=== PATIENT | female | born 1935 | race Caucasian/White ===

== ENCOUNTER → 2021-01-04 | Outpatient (CLI) | payer OTHER ==
[2021-01-05 12:14] LABS: RHEUMATOID ARTHRITIS FACTOR 11.2 IU/mL (0.0-13.9)
== END ==
LOC: LAB 14:11
PROVIDERS: Nurse Practitioner Family
DX: M25.551 Pain in right hip (principal); M25.561 Pain in right knee; M16.11 Unilateral primary osteoarthritis, right hip; M17.11 Unilateral primary osteoarthritis, right knee
CPT/HCPCS: 36415; 73502; 73562; 83520; 85652; 86140; 86200; 86431

== ENCOUNTER → 2021-05-09 | Outpatient (CLI) | payer OTHER ==
[~2021-05-09] MED LIST: LEVOTHYROXINE100 MCG PO; LIPITOR TAB 2020 MG PO; LOSARTAN POTASS50 MG PO; TYLENOL 8 HOUR650 MG PO; [UNRECOGNIZED DRUG - OTHER] TOP
[2021-05-09 12:20] LABS: HEMOGLOBIN 13.8 gm/dl (12.3-15.3); RED BLOOD COUNT 4.35 M/UL (4.00-5.10); WHITE BLOOD COUNT 6.5 K/UL (4.5-11.0)
== END ==
LOC: EDSTATUS 11:00 → OPSV2 11:00
PROVIDERS: Orthopaedic Surgery
DX: Z01.818 Encounter for other preprocedural examination (principal); M16.11 Unilateral primary osteoarthritis, right hip; I10 Essential (primary) hypertension
CPT/HCPCS: 36415; 80048; 85027; 93005

== ENCOUNTER → 2021-05-22 | Outpatient (CLI) | payer OTHER ==
[~2021-05-22] MED LIST changes: +ASPIRIN EC81 MG PO; +HYDROCODON-ACE1 EAC6 PO; +ZOFRAN4 MG PO
== END ==
LOC: LAB 09:24
PROVIDERS: Orthopaedic Surgery
DX: Z01.812 Encounter for preprocedural laboratory examination (principal); M16.11 Unilateral primary osteoarthritis, right hip; I10 Essential (primary) hypertension
CPT/HCPCS: 36415; 80048; 86850; 86900; 86901

== ENCOUNTER 2021-05-23 08:07 | Day surgery (SDC) | payer OTHER ==
[~2021-05-23] VITALS: Ht 172.7 cm; Wt 69.4 kg
[~2021-05-23 08:07] MED LIST changes: -ASPIRIN EC81 MG PO; -HYDROCODON-ACE1 EAC6 PO; -ZOFRAN4 MG PO
[2021-05-23] MEDS ORDERED: ZOFRAN4 MG PO (13:02)
[2021-05-23] MEDS ORDERED: HYDROCODON-ACE1 EAC6 PO (13:02)
[2021-05-23] MEDS ORDERED: ASPIRIN EC81 MG PO (13:02)
[2021-05-24 06:46] LABS: HEMOGLOBIN 8.9 gm/dl (12.3-15.3); RED BLOOD COUNT 2.79 M/UL (4.00-5.10); WHITE BLOOD COUNT 9.4 K/UL (4.5-11.0)
[2021-05-25 06:41] LABS: HEMOGLOBIN 7.7 gm/dl (12.3-15.3); WHITE BLOOD COUNT 7.1 K/UL (4.5-11.0)
[2021-05-25 06:45] LABS: RED BLOOD COUNT 2.5 M/UL (4.00-5.10)
[2021-05-25] MEDS ORDERED: PROTONIX 40 MG40 M1 PO (08:38)
[2021-05-25] MEDS ORDERED: FERROUS GLUCON324 M1 PO (08:38)
[2021-05-25] MEDS ORDERED: FLORINEF 0.1 M0.1 MG PO ×2 (08:51→08:57)
== END 2021-05-25 12:48 | disposition home health service (06) ==
LOC: OR 08:07 → EDSTATUS 11:15 → M/S 17:25 → OR 05-25 12:48
PROVIDERS: Orthopaedic Surgery
DX: M16.11 Unilateral primary osteoarthritis, right hip (principal); G89.18 Other acute postprocedural pain; I95.1 Orthostatic hypotension; I10 Essential (primary) hypertension; N28.9 Disorder of kidney and ureter, unspecified; D62 Acute posthemorrhagic anemia; D50.9 Iron deficiency anemia, unspecified; Z79.899 Other long term (current) drug therapy; Z20.822 Contact with and (suspected) exposure to COVID-19
CPT/HCPCS: 36415; 73501; 73502; 76000; 80048; 82565; 83540; 83550; 85027; 97110; 97110-GP-CQ; 97116; 97116-GP-CQ; 97161; 97166; 97535; C1713; C1776; J0171; J0690; J1100; J1200; J1885; J2270; J2370; J2704; J2795; J3370; J7050; J7120